=== PATIENT | male | born 1935 | race Caucasian/White ===

== ENCOUNTER 2016-12-07 09:02 | Inpatient (IN) | payer OTHER, MEDICARE ==
[~2016-12-07] VITALS: Ht 170.2 cm; Wt 78.5 kg
--- NOTE | ~2016-12-07 | 2DMMODE ---
[facility] [place] [address] 2 D/M-MODE ECHOCARDIOGRAM Name: OCTAVIO ESPINOSA Room #: 438-P [facility] IN ..#: [id number] Admission: 12/07/16 Attend Phys: Maximus Ibanez Discharge: Date of : 37 Date of Service: 12/08/16 1126 Report #: [id number] THIS REPORT FOR: //name// APPROVED REPORT EXAM: Comprehensive 2D, Doppler, and color-flow Echocardiogram Patient Location: Bedside Blood Pressure: 138/72 mmHg HR: 100 bpm Other Information Study Quality: Poor Indications Dyspnea Pulmonary Embolism 2D Dimensions RVDd: 45.61 mm LVEF(%): 55.10 (>50%) IVSd: 9.18 (7-11mm) LVOT Diam: 22.05 (18-24mm) LVDd: 43.04 mm PWd: 8.89 (7-11mm) Ascending Aorta: 35.98 mm LVDs: 30.82 (25-40mm) IVC: 25.00 mm Aortic Root: 39.00 mm Aguero's LVEF: 55.10 % Volumes Left Atrial Volume (Systole) Single Plane 4CH: 54.19 mL Single Plane 2CH: 77.25 mL LA ESV Index: 39.00 mL/m2 Aortic Valve AoV Peak Jorge.: 1.17 m/s AO Peak Gr.: 5.60 mmHg LV Max P.55 mmHg LV Max: 0.79 m/s Mitral Valve MV E Max Jorge.: 0.97 m/s MV Decel. Time: 156.10 ms Pulmonary Valve PV Peak Jorge.: 0.87 m/s PV Peak Gr.: 3.03 mmHg [facility] [address] [place] [address] 2 D/M-MODE ECHOCARDIOGRAM Name: OCTAVIO ESPINOSA Room #: 438-P [facility] IN [facility].#: [id number] Admission: 12/07/16 Attend Phys: Maximus Ibanez Discharge: Date of : 37 Date of Service: 12/08/16 1126 Report #: [id number] Tricuspid Valve TR Peak Jorge.: 3.10 m/s RAP Estimate: 10.00 mmHg TR Peak Gr.: 38.48 mmHg Left Ventricle The left ventricle is normal size. There is normal LV segmental wall motion. There is normal left ventricular wall thickness. Left ventricular systolic function is normal. The left ventricular ejection fraction is within the normal range. LVEF is 55-60%. Distolic function cannot be accurately assessed. Right Ventricle Right ventricle is dilated. Right ventricle is hypokinetic. Atria Left atrium is dilated. Right atrium is dilated. Aortic Valve Aortic valve is calcified. No aortic regurgitation is present. There is no aortic valvular stenosis. Mitral Valve The mitral valve is normal in structure. Mild mitral regurgitation. Tricuspid Valve The tricuspid valve is normal in structure. There is mild tricuspid regurgitation. The right atrial pressure is estimated at 10 mmHg. There is mild-moderate pulmonary hypertension. Pulmonic Valve The pulmonary valve is normal in structure. There is no pulmonic valvular regurgitation. Great Vessels The aortic root is normal in size. IVC is dilated and collapses >50% with inspiration. Pericardium There is no pericardial effusion. <Conclusion> The left ventricle is normal size. LVEF is 55-60%. [facility] [place] [address] 2 D/M-MODE ECHOCARDIOGRAM Name: JOSE MANUELRADHAOCTAVIO Roberts Room #: 438-P [facility] IN M.R.#: [id number] Admission: 12/07/16 Attend Phys: Maximus Ibanez Discharge: Date of : 37 Date of Service: 12/08/16 1126 Report #: [id number] Right ventricle is dilated. Right ventricle is hypokinetic. Left atrium is dilated. Right atrium is dilated. Aortic valve is calcified. No aortic regurgitation is present. There is no aortic valvular stenosis. The mitral valve is normal in structure. Mild mitral regurgitation. There is mild tricuspid regurgitation. The right atrial pressure is estimated at 10 mmHg. There is mild-moderate pulmonary hypertension. <ELECTRONICALLY SIGNED> By: Artur Schuster MD 12/08/16 1126 1126 1126 Artur Schuster MD /INF
--- NOTE | ~2016-12-07 | EKG ---
[address] rumr: [place] [address] ELECTROCARDIOGRAM REPORT Name: OCTAVIO ESPINOSA Room #: 438-P [facility] IN M.R.#: [id number] Admission: 12/07/16 Attend Phys: Maximus Tyler Discharge: 12/10/16 Date of : 37 Report #: [id number] THIS REPORT FOR: //name// [facility] Test Date: 2016-12-07 Test Time: 13:05:59 Pat Name: OCTAVIO ESPINOSA Department: Room: [facility] Gender: M Bisque Ware Dipper: helga : 1935 Requested By: Tanner Geller Order Number: [id number] MD: Giovanni Coto Measurements Intervals [place] Rate: 107 P: 65 SD: 178 QRS: -5 QRSD: 87 T: -2 QT: 390 QTc: 521 Interpretive Statements Sinus tachycardia Multiple ventricular premature complexes Borderline T abnormalities, diffuse leads No previous ECG available for comparison Electronically Signed On 12-12-2016 12:17:04 CDT by Giovanni Coto [email or web address] <ELECTRONICALLY SIGNED> By: Giovanni Coto MD 12/12/16 1217 1305 130 Giovanni Coto MD /VERONICA
--- NOTE | ~2016-12-07 | EKG ---
[address] [address] ELECTROCARDIOGRAM REPORT Name: OCTAVIO ESPINOSA Room #: 438-P [facility] IN M.R.#: [id number] Admission: 12/07/16 Attend Phys: Maximus Tyler Discharge: 12/10/16 Date of : 37 Report #: [id number] THIS REPORT FOR: //name// [facility] Test Date: 2016-12-07 Test Time: 09:11:20 Pat Name: OCTAVIO ESPINOSA Department: Room: 438 P Gender: M Supply Tech: agatha : 1935 Requested By: Param De Order Number: [id number] MD: Giovanni Coto Measurements Intervals [place] Rate: 120 P: 46 DC: 119 QRS: 18 QRSD: 90 T: 40 QT: 322 QTc: 455 Interpretive Statements Sinus tachycardia Multiple ventricular premature complexes Borderline ST depression, lateral leads No previous ECG available for comparison Electronically Signed On 12-12-2016 12:15:58 CDT by Giovanni Coto [email or web address] <ELECTRONICALLY SIGNED> By: Giovanni Coto MD 12/12/16 1215 0 0 Giovanni Coto MD /VERONICA
--- NOTE | ~2016-12-07 | H ---
[facility] [place] [address] HISTORY AND PHYSICAL Name: OCTAVIO ESPINOSA Fadumo Room #: 438-P ADM IN M.R.#: [id number] Admission: 12/07/16 Attend Phys: Param De MD Discharge: Date of : 37 Report #: [id number] THIS REPORT FOR: //name// CC: NO PCP Param Rooney DATE OF SERVICE: 12/07/2016 CHIEF COMPLAINT: Shortness of air. HISTORY OF PRESENT ILLNESS: The patient is an 81-year-old male, who states he was fine this morning, got up to the bathroom and he suddenly fell short of breath. The patient states he had a little bit of cough, but nothing acute this morning. He does have a history of prior PE many years ago. 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 He states he never found out why he got the blood clot last time. He is not taking any chronic blood thinners. He is not aware of having any underlying coagulopathy. He saw ortho and had a venous Doppler of left leg, just last week that was negative. This was for leg swelling and pain. His EKG shows sinus tachycardia, heart rate of 120, no ST segment changes. PAST MEDICAL HISTORY: Significant for: 1. 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 He has had prior pulmonary embolism, prior compression fractures at L4 and also at T2 and T3. He has prior prostate cancer with radiation and carpal tunnel syndrome. 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 He has cataracts. MEDICATIONS: Include Dilantin 100 mg in the morning and 200 at bedtime, Avodart 0.5 mg a day, Claritin 10 mg a day, ____ daily, calcium daily, glucosamine daily, MSM daily, Valium 5 mg p.r.n., aspirin 81 mg a day, Flovent 44 two puffs daily, fish oil daily, krill oil daily, Toviaz 8 mg a day, Zyrtec 10 mg a day, vitamin D daily, Colace p.r.n., multivitamin, p.r.n. ALLERGIES: No known drug allergies. SOCIAL HISTORY: Prior smoker, not currently. Alcohol occasionally. No recreational drugs. REVIEW OF SYSTEMS: CONSTITUTIONAL: He denies any fever or chills. HEENT: No headaches or visual changes that are recent. CHEST: He has chest tightness, shortness of breath and slight cough. No sputum production. CARDIOVASCULAR: No palpations or angina. [address] [address] HISTORY AND PHYSICAL Name: JOSE MANUELRADHAOCTAVIO Roberts Room #: 438-P [facility] IN M.R.#: [id number] Admission: 12/07/16 Attend Phys: Param De MD Discharge: Date of : 36 Report #: [id number] GASTROINTESTINAL: No nausea, vomiting, diarrhea or constipation. GENITOURINARY: No burning or frequency. He does have chronic incontinence. EXTREMITIES: He has chronic right side weakness and chronic edema. SKIN: No new rashes or wounds. NEUROLOGIC: No new weakness. He has chronic weakness on the right side. LABORATORY DATA: ABG; pH 7.4, pCO2 of 39, pO2 of 55. Lactate is 1.1 on room air. Sodium 139, potassium 4.2, chloride 104, bicarbonate 29, BUN 15, creatinine 0.9, glucose 142, AST 26, ALT 16, and alkaline phosphatase 123. Troponin 0.56. BNP 1093 and albumin 3.1. INR is 1.0. WBCs 5.5, hemoglobin 13.8, hematocrit 40.8, platelet count 159, 69 segs, and 70 lymphs. Chest x-ray shows basal atelectasis but improved from his prior study. CT angiogram is positive for bilateral large pulmonary embolus. ASSESSMENT AND PLAN: 1. Bilateral pulmonary embolism, source not identified yet. We will go ahead and get venous Dopplers bilaterally. He has already been started on heparin drip. We will consult Hematology in light of this being a second clot. I think he needs a coagulopathy workup. 2. Seizure disorder. Resume his home meds. 3. Prior brain injury as above. 4. Urinary retention with benign prostatic hypertrophy, cannot start his Avodart ____ we will give him tamsulosin instead. We will monitor his urine output. By: 1113 1331 Param De MD /nt
[2016-12-07 09:02] VITALS: BP 137/98
[~2016-12-07 09:02] MED LIST: ACID CONTROL20 MG; ASPIRIN EC81 M1; AVODART0.5 MG; CALCITRATE200 MG; CHONDROITIN SU250 MG PO; CLARITIN; DIAZEPAM 5 MG5 M1; DILANTIN 100 M100 MG; ECHINACEA PLUS400 MG; ENABLEX15 MG PO; FISHOIL; FLOVENT HFA 4444 MCG; GLUCOSAMINE HC500 MG; MSM1500 MG; NORCO 5-325 TA1 EACH PO; ONE DAILY COMP1 EAC1; OXYBUTYNIN; POTASSIUM20; SAW PALMETTO500 MG; UNICOMPLEX M TA1 TA1 PO
[2016-12-07] MEDS ORDERED: KRILL OIL500 MG PO (09:24)
[2016-12-07] MEDS ORDERED: FISH OIL 1,001000 M2 PO (09:24)
[2016-12-07 09:26] LABS: ABSOLUTE NEUTROPHILS 3.8 thou/uL (1.4-8.2); EOSINOPHILS 1.9 % (0.0-3.0); HEMATOCRIT 40.8 % (42.0-52.0); HEMOGLOBIN 13.8 gm/dL (14.0-18.0); LYMPHOCYTES 17.5 % (24.0-44.0); MCH 32.2 pg (26.0-34.0); MCHC 33.9 g/dL (28.0-37.0); MCV 95.1 fL (80.0-100.0); MONOCYTES 10.4 % (1.0-8.0); PLATELET COUNT 159 thou/uL (150-400); POLYS 69.2 % (36.0-66.0); RBC 4.29 mil/uL (4.50-6.00); RDW 14.7 % (10.5-14.5); WBC 5.5 thou/uL (4.0-11.0)
[2016-12-07] MEDS ORDERED: CETIRIZINE HCL5 MG PO (09:26)
[2016-12-07] MEDS ORDERED: TOVIAZ8 MG PO (09:26)
[2016-12-07] MEDS ORDERED: VITAMIN D3400 UNIT PO (09:26)
[2016-12-07] MEDS ORDERED: DULCOLAX5 MG PO (09:26)
[2016-12-07 09:29] LABS: MANUAL DIFF NO
[2016-12-07 09:36] LABS: CALCIUM 8.8 mg/dL (8.5-10.1); CREATININE 0.9 mg/dL (0.6-1.3); POTASSIUM 4.2 mmol/L (3.5-5.1)
[2016-12-07 09:43] LABS: ABG SAMPLE TYPE ARTERIAL; BE(vivo) 2.2 mmol/L (-2 to +3); HCO3 26.4 mmol/L (22.0-26.0); LACTATE 1.16 mmol/L (0.5-2.0); O2Hb 88.2 % (92.0-98.0); PCO2 39.5 mmHg (35.0-45.0); pH 7.443 (7.360-7.450); sO2 90.1 % (92.0-98.0); tCO2 27.6 mmol/L (24.0-30.0)
[2016-12-07 09:44] LABS: PO2 55.6 mmHg (80.0-100.0); STICK SITE L.RADIAL
[2016-12-07 09:47] LABS: ALBUMIN 3.1 g/dL (3.4-5.0); TOTAL BILIRUBIN 0.3 mg/dL (<0.1-1.0); TOTAL PROTEIN 6.7 g/dL (6.4-8.2); TROPONIN-I 0.56 ng/mL (<0.04-0.07)
[2016-12-07 10:44] LABS: APTT 27.5 Seconds (24.5-32.8); PROTIME 10.7 Seconds (9.3-11.4)
[2016-12-07 10:54] VITALS: BP 120/81
[2016-12-07 12:47] VITALS: BP 143/85
[2016-12-07 15:55] VITALS: BP 105/73
[2016-12-07 19:27] VITALS: BP 163/92
[2016-12-08 04:26] VITALS: BP 138/72
[2016-12-08 07:27] VITALS: BP 138/72
[2016-12-08 09:15] VITALS: BP 148/71
[2016-12-08 11:45] VITALS: BP 125/66
[2016-12-08 16:15] VITALS: BP 108/58
[2016-12-08 19:41] VITALS: BP 135/68
[2016-12-09 04:32] VITALS: BP 131/59
[2016-12-09 06:47] LABS: HEMATOCRIT 34.7 % (42.0-52.0); HEMOGLOBIN 11.8 gm/dL (14.0-18.0); MCH 32.6 pg (26.0-34.0); MCHC 34.1 g/dL (28.0-37.0); MCV 95.5 fL (80.0-100.0); RBC 3.63 mil/uL (4.50-6.00); RDW 14.5 % (10.5-14.5); WBC 5.6 thou/uL (4.0-11.0)
[2016-12-09 06:59] LABS: CALCIUM 8.9 mg/dL (8.5-10.1); CREATININE 0.8 mg/dL (0.6-1.3); POTASSIUM 3.9 mmol/L (3.5-5.1)
[2016-12-09 08:32] VITALS: BP 109/66
[2016-12-09 12:32] VITALS: BP 96/68
[2016-12-09 16:50] VITALS: BP 152/90
[2016-12-09 19:20] VITALS: BP 141/66
[2016-12-10 01:06] LABS: ANTITHROMBIN III 113 % (75-135); DIL. RUSSELL VIPER VENOM 58.6 sec (0.0-44.0); FACTOR VIII-AHF 149 % (57-163)
[2016-12-10 04:11] LABS: BETA-2 GLYCOPROTEIN IGG < 9 (0-20); BETA-2 GLYCOPROTEIN IGM < 9 (0-32)
[2016-12-10 04:18] VITALS: BP 125/54
[2016-12-10 06:16] LABS: HEMATOCRIT 36.4 % (42.0-52.0); HEMOGLOBIN 12.2 gm/dL (14.0-18.0); MCH 32.3 pg (26.0-34.0); MCHC 33.7 g/dL (28.0-37.0); RBC 3.79 mil/uL (4.50-6.00); RDW 14.6 % (10.5-14.5)
[2016-12-10 08:15] VITALS: BP 103/64
[2016-12-10 11:30] VITALS: BP 110/56
[2016-12-10] MEDS ORDERED: DUONEB 2.5-0.5 M3 ML INH (13:26)
[2016-12-10] MEDS ORDERED: CARDIZEM CD 18180 M3 PO (13:26)
[2016-12-10] MEDS ORDERED: ARIXTRA7.5 MG/0.6 SUBQ (13:29)
[2016-12-10] MEDS ORDERED: VALIUM5 MG PO (13:33)
== END 2016-12-10 15:20 | DRG 175 ==
LOC: ER 09:02 → EROBS 10:38 → 4S 10:38
PROVIDERS: Internal Medicine Hematology & Oncology; Internal Medicine Pulmonary Disease; Physician Assistant
DX: I26.99 Other pulmonary embolism without acute cor pulmonale (principal); J96.01 Acute respiratory failure with hypoxia; I82.412 Acute embolism and thrombosis of left femoral vein; I27.2 Other secondary pulmonary hypertension; H26.9 Unspecified cataract; N40.1 Benign prostatic hyperplasia with lower urinary tract symptoms; R33.8 Other retention of urine; G40.909 Epilepsy, unspecified, not intractable, without status epilepticus; Z87.81 Personal history of (healed) traumatic fracture; Z87.891 Personal history of nicotine dependence; Z85.46 Personal history of malignant neoplasm of prostate; Z87.820 Personal history of traumatic brain injury; Z92.3 Personal history of irradiation
CPT/HCPCS: 10100

== ENCOUNTER 2016-12-23 20:05 | Emergency (ER) | payer OTHER, MEDICARE ==
[~2016-12-23] VITALS: Ht 170.2 cm; Wt 83.9 kg
[~2016-12-23 20:05] MED LIST changes: +ARIXTRA7.5 MG/0.6 SUBQ; +CALCITRATE200 MG PO; +CARDIZEM CD 18180 M3 PO; +CETIRIZINE HCL5 MG PO; +CLARITIN10 MG PO; +DILANTIN100 MG PO; +DULCOLAX5 MG PO; +DUONEB 2.5-0.5 M3 ML INH; +FISH OIL 1,001000 M2 PO; +FLOMAX0.4 MG PO; +KRILL OIL500 MG PO; +LOVAZA1000 MG PO; +TOVIAZ8 MG PO; +VALIUM5 MG PO; +VITAMIN D3400 UNIT PO
[2016-12-23 21:30] LABS: INR 2.3; PROTIME 24.2 Seconds (9.3-11.4)
[2016-12-23] MEDS ORDERED: NORCO 10-325 T1 EAC1 PO (21:36)
== END 2016-12-24 01:11 | disposition home or self-care (01) ==
LOC: ER 20:05
PROVIDERS: Emergency Medicine
DX: M25.511 Pain in right shoulder (principal); G40.909 Epilepsy, unspecified, not intractable, without status epilepticus; G81.91 Hemiplegia, unspecified affecting right dominant side; Z86.711 Personal history of pulmonary embolism; Z85.46 Personal history of malignant neoplasm of prostate; Z87.891 Personal history of nicotine dependence

== ENCOUNTER 2016-12-26 20:09 | Inpatient (IN) | payer OTHER, MEDICARE ==
[~2016-12-26] VITALS: Ht 170.2 cm; Wt 90.7 kg
--- NOTE | ~2016-12-26 | HC ---
[facility] [place] [address] CONSULTATION Name: OCTAVIO ESPINOSA Fadumo Room #: 545-P ADM IN M.R.#: [id number] Admission: 12/26/16 Attend Phys: Jeremy Lawrence MD Discharge: Date of : 37 Report #: [id number] THIS REPORT FOR: //name// CC: Alexandre Lawrence REQUESTING PHYSICIAN: Nurse practitioner, Farheen Andre. REASON FOR CONSULTATION: Right shoulder pain. PAST MEDICAL HISTORY: Right upper extremity paralysis secondary to brain surgery in the 1960s at age 33. He has been left-hand dominant ever since. Pulmonary embolism, anemia, right shoulder pain, pneumonia, seizures, cataracts, compression fracture, prostate cancer and carpal tunnel syndrome. PAST SURGICAL HISTORY: In 1968, intracranial surgery, which left him with right upper extremity hemiparesis; arthroscopic surgery on the left knee; vasectomy and carpal tunnel release. ALLERGIES: No known drug allergies. CURRENT MEDICATIONS: Tamsulosin, phenytoin, multivitamin, loratadine, docusate, fish oil, diltiazem, vitamin D, pantoprazole, insulin. There is a reported history of anticoagulation as treatment for pulmonary embolism, although I do not see specific confirmation of this and the patient has some difficulty with those details on history. SOCIAL HISTORY: Former smoker. No drug abuse. He drinks 1-2 drinks per day. FAMILY HISTORY: Cancer and heart disease. REVIEW OF SYSTEMS: Positive for swelling of the right upper extremity and shoulder pain. Denies fever, chills, mental status changes, nausea, vomiting, diarrhea or recent complaints. HISTORY OF PRESENT ILLNESS: The patient is an 81-year-old left-hand dominant male who has right upper extremity paralysis following brain surgery and at age 33. He has noted a, what sounds like several-week history of right shoulder pain. He was recently admitted to this hospital in November 2016 with pulmonary emboli that was recurrent and he is placed on Arixtra per medical record review. He was then transferred to a assisted facility and he noted pain when he was being assisted with moving earlier this week. This has progressed. He does report a history of seeing Dr. Regis Arias in clinic one week ago and receiving a cortisone injection for this chronic shoulder pain. He presented to the emergency room yesterday with exacerbation of shoulder pain as well as significant swelling. He has had an ultrasound done of the right upper [address] [address] CONSULTATION Name: OCTAVIO ESPINOSA Fadumo Room #: 545-P [facility] IN [facility]#: [id number] Admission: 12/26/16 Attend Phys: Jeremy Lawrence MD Discharge: Date of : 36 Report #: [id number] extremity, which was negative for DVT, as he was noted to have swelling from the shoulder all the way down to the fingers. PHYSICAL EXAMINATION: VITAL SIGNS: Temperature 36.9, pulse 82, respirations 16, blood pressure 131/49 and pulse ox 100%. GENERAL: He is an elderly appearing male, who appears his stated age. He is alert and oriented, no acute distress. NEUROLOGIC: Affect is blunted. EXTREMITIES: Right upper extremity: There is excessive swelling from the shoulder down to the fingers. There is a Band-Aid on the posterior aspect of the shoulder from previous corticosteroid injection recently. He has tenderness about the soft tissues and anterior aspect, superior aspect and posterior aspect of the shoulder. The arm, elbow and forearm are nontender. There is poor motor function in the right upper extremity due to the previous neurologic injury. He does have gross motor function intact distally. He has capillary refill present. LABORATORY DATA: White blood cell count 9.4, hematocrit 21 and platelets 164,000. IMAGING: A CT scan is available that shows previous scapular fracture which is healed. There is no humerus fracture. IMPRESSION: This is an 81-year-old gentleman on anticoagulation for pulmonary emboli, who has right shoulders and upper extremity swelling and right shoulder pain. He has previously received a corticosteroid injection approximately a week ago. PLAN: An MRI has been ordered and I agree with this. I will continue to follow until this is available. I anticipate conservative measures for this. There is report of an ultrasound indicating that there may be a fluid collection around the humerus, consistent with hematoma. We will see what the MRI shows and treat accordingly. Thank you for the consultation. <ELECTRONICALLY SIGNED> By: Junior Maier MD 12/27/16 1739 1148 1341 Junior Maier MD /nt
[~2016-12-26 20:09] MED LIST changes: +NORCO 10-325 T1 EAC1 PO
[2016-12-26 20:11] VITALS: BP 150/66
[2016-12-26 20:31] LABS: ABSOLUTE NEUTROPHILS 7.2 thou/uL (1.4-8.2); BASOPHILS 0.2 % (0.0-2.0); EOSINOPHILS 2.2 % (0.0-3.0); HEMATOCRIT 23.1 % (42.0-52.0); HEMOGLOBIN 7.9 gm/dL (14.0-18.0); LYMPHOCYTES 10.1 % (24.0-44.0); MCH 32.6 pg (26.0-34.0); MCV 95.9 fL (80.0-100.0); MONOCYTES 10.3 % (1.0-8.0); PLATELET COUNT 187 thou/uL (150-400); POLYS 77.2 % (36.0-66.0); RBC 2.41 mil/uL (4.50-6.00); RDW 15.2 % (10.5-14.5); WBC 9.3 thou/uL (4.0-11.0)
[2016-12-26 20:33] LABS: MANUAL DIFF NO
[2016-12-26 20:40] LABS: CALCIUM 8.2 mg/dL (8.5-10.1); CREATININE 0.8 mg/dL (0.7-1.3); POTASSIUM 4.3 mmol/L (3.5-5.1)
[2016-12-26 21:52] VITALS: BP 137/62
[2016-12-26 22:15] VITALS: BP 135/57
[2016-12-27 04:40] VITALS: BP 134/52
[2016-12-27 05:51] LABS: HEMATOCRIT 21.4 % (42.0-52.0); HEMOGLOBIN 7.3 gm/dL (14.0-18.0); MCH 32.9 pg (26.0-34.0); MCHC 34.1 g/dL (28.0-37.0); MCV 96.3 fL (80.0-100.0); PLATELET COUNT 164 thou/uL (150-400); RBC 2.22 mil/uL (4.50-6.00); RDW 14.9 % (10.5-14.5); WBC 9.4 thou/uL (4.0-11.0)
[2016-12-27 05:52] LABS: MANUAL DIFF YES
[2016-12-27 06:01] LABS: INR 2.6; PROTIME 26.6 Seconds (9.3-11.4)
[2016-12-27 06:12] LABS: MAGNESIUM 2.1 mg/dL (1.8-2.4)
[2016-12-27 06:16] LABS: CALCIUM 8.3 mg/dL (8.5-10.1); CREATININE 0.7 mg/dL (0.7-1.3); POTASSIUM 4.5 mmol/L (3.5-5.1)
[2016-12-27 06:55] LABS: ABSOLUTE NEUTROPHILS 7.1 thou/uL (1.4-8.2); TOTAL CELL COUNT 100
[2016-12-27 06:56] LABS: ANISOCYTOSIS 2+; POLYCHROMASIA OCCASIONAL
[2016-12-27 08:01] VITALS: BP 131/49
[2016-12-27 17:00] VITALS: BP 124/58
[2016-12-27 20:12] VITALS: BP 109/51
[2016-12-28 06:20] LABS: RBC 2.09 mil/uL (4.50-6.00); WBC 7.9 thou/uL (4.0-11.0)
[2016-12-28 06:22] LABS: MCH 32.9 pg (26.0-34.0); MCHC 34.4 g/dL (28.0-37.0); MCV 95.7 fL (80.0-100.0); RDW 14.9 % (10.5-14.5)
[2016-12-28 06:27] LABS: HEMOGLOBIN 6.9 gm/dL (14.0-18.0)
[2016-12-28 06:40] LABS: CALCIUM 7.8 mg/dL (8.5-10.1); CREATININE 0.7 mg/dL (0.7-1.3); POTASSIUM 4.6 mmol/L (3.5-5.1)
[2016-12-28 07:40] VITALS: BP 116/54
[2016-12-28 08:05] LABS: INR 1.5; PROTIME 15.6 Seconds (9.3-11.4)
[2016-12-28 09:35] VITALS: BP 125/63; BP 126/70
[2016-12-28 16:00] LABS: ABSOLUTE NEUTROPHILS 5.8 thou/uL (1.4-8.2); BASOPHILS 0.8 % (0.0-2.0); EOSINOPHILS 2.7 % (0.0-3.0); HEMATOCRIT 22.2 % (42.0-52.0); HEMOGLOBIN 7.6 gm/dL (14.0-18.0); LYMPHOCYTES 11.2 % (24.0-44.0); MANUAL DIFF NO; MCH 32.5 pg (26.0-34.0); MCHC 34.3 g/dL (28.0-37.0); MCV 94.7 fL (80.0-100.0); MONOCYTES 11.1 % (1.0-8.0); PLATELET COUNT 182 thou/uL (150-400); POLYS 74.2 % (36.0-66.0); RBC 2.35 mil/uL (4.50-6.00); RDW 15.5 % (10.5-14.5); WBC 7.8 thou/uL (4.0-11.0)
[2016-12-28 20:25] VITALS: BP 137/57
[2016-12-29 04:40] VITALS: BP 138/58
[2016-12-29 06:56] LABS: HEMATOCRIT 23.5 % (42.0-52.0); MCH 32.2 pg (26.0-34.0); MCV 94.6 fL (80.0-100.0); RBC 2.48 mil/uL (4.50-6.00); RDW 15.6 % (10.5-14.5); WBC 8.1 thou/uL (4.0-11.0)
[2016-12-29 07:03] LABS: INR 1.1; PROTIME 11.3 Seconds (9.3-11.4)
[2016-12-29 07:14] LABS: CALCIUM 8.3 mg/dL (8.5-10.1); CREATININE 0.6 mg/dL (0.7-1.3); POTASSIUM 4.4 mmol/L (3.5-5.1)
[2016-12-29 07:40] VITALS: BP 137/64
[2016-12-29] MEDS ORDERED: COLACE 100 MG100 MG PO (15:26)
[2016-12-29 17:10] VITALS: BP 123/53
== END 2016-12-29 18:12 | DRG 812 ==
LOC: ER 20:09 → EROBS 21:23 → 5S 21:23
PROVIDERS: Emergency Medicine; Hospitalist; Nurse Practitioner
PROC: 30233N1 Transfusion of Nonautologous Red Blood Cells into Peripheral Vein, Percutaneous Approach (ICD-10-PCS; principal; 2016-12-28)
DX: D62 Acute posthemorrhagic anemia (principal); T45.515A Adverse effect of anticoagulants, initial encounter; G56.00 Carpal tunnel syndrome, unspecified upper limb; T14.8 Other injury of unspecified body region; I27.2 Other secondary pulmonary hypertension; G40.909 Epilepsy, unspecified, not intractable, without status epilepticus; Z98.42 Cataract extraction status, left eye; Z98.41 Cataract extraction status, right eye; Z98.52 Vasectomy status; Z87.01 Personal history of pneumonia (recurrent); Z85.46 Personal history of malignant neoplasm of prostate; Z87.891 Personal history of nicotine dependence; Z87.311 Personal history of (healed) other pathological fracture; Z80.9 Family history of malignant neoplasm, unspecified; Z79.01 Long term (current) use of anticoagulants; Z79.82 Long term (current) use of aspirin; Z79.899 Other long term (current) drug therapy; Z82.49 Family history of ischemic heart disease and other diseases of the circulatory system; Z86.711 Personal history of pulmonary embolism
CPT/HCPCS: 10086

== ENCOUNTER 2016-12-29 17:20 | Inpatient (IN) | payer OTHER, MEDICARE ==
[~2016-12-29] VITALS: Ht 170.2 cm; Wt 79.1 kg
--- NOTE | ~2016-12-29 | PLAN ---
[facility] [place] [place] [address] REHAB UNIT PLAN OF CARE Name: OCTAVIO ESPINOSA Room #: 516-1 ADM IN M.R.#: [id number] Admission: 12/29/16 Attend Phys: Hansel Melissa MD Discharge: Date of : 36 Report #: [id number] THIS REPORT FOR: //name// CC: Hanesl Ivan DATE OF SERVICE: 12/31/2016 SUBJECTIVE AND OBJECTIVE: The patient is seen back today in followup. Continues with significant ecchymosis of that right upper extremity with swelling. Appears to be little less painful overall today. He is alert and pleasant. His transfers have been max assist of 2, bed to wheelchair. Bed mobility is max assist. In occupational therapy, he is dependent for lower body dressing. ASSESSMENT: 1. Right-sided hemiparesis. 2. 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 3. Residual right upper extremity hemorrhage, worsened by anticoagulation with right upper extremity swelling. 4. Seizure disorder. 5. History of large bilateral pulmonary emboli. 6. Meningioma resection in 1968 with subsequent plate placement in the head in 1970. 7. T2-T3 fracture, 01/09/2011. 8. L4 compression deformity. 9. Spondylosis. PLAN: The overall plan of care is based on the preadmission screen, post-admission physician evaluation and information garnered from therapy assessments. 1. Estimated length of stay at this point is probably going to be at least 2-3 weeks at his lower functional level. 2. Medical prognosis is reasonably good. 3. Anticipated interventions includes the interdisciplinary acute inpatient rehabilitation program with PT and OT, rehab nursing assisting regarding medication management, skin care prophylaxis, bowel and bladder issues and nursing education. Case management is involved as well as the it sales consultant physicians and the rest of the interdisciplinary acute rehabilitation team. 4. Anticipated functional outcomes would be for the patient to improve with basic bed mobility and transfers, so that he can return back to the home setting. 5. Discharge destination, again he will be back to the home setting where he lives in a house with his . 6. Expected therapy by discipline includes PT and OT one and one-half hours per [facility] [address] [place] [address] REHAB UNIT PLAN OF CARE Name: OCTAVIO ESPINOSA Fadumo Room #: 516-1 ADM IN .R.#: [id number] Admission: 12/29/16 Attend Phys: Hansel Melissa MD Discharge: Date of : 36 Report #: [id number] day each five days a week throughout the duration of the acute inpatient rehabilitation stay. <ELECTRONICALLY SIGNED> By: Hansel Melissa MD 01/13/17 1518 0913 1214 Hansel Melissa MD /nt
--- NOTE | ~2016-12-29 | H ---
[facility] [place] [address] HISTORY AND PHYSICAL Name: OCTAVIO ESPINOSA Room #: 516-1 ADM IN M.R.#: [id number] Admission: 12/29/16 Attend Phys: Hansel Melissa MD Discharge: Date of : 36 Report #: [id number] THIS REPORT FOR: //name// CC: Hansel Ivan DATE OF SERVICE: 12/29/2016 HISTORY OF PRESENT ILLNESS: The patient is an 81-year-old white male with history of right hemiparesis, upper and lower extremities from a prior meningoma with resection in 1968. He has an AFO that he wears in the right lower extremity and has significant residual weakness of that right upper extremity. His course has been complicated by history of a large bilateral pulmonary emboli for which he has been on anticoagulation. He had significant worsening of right upper extremity pain and swelling with which he was admitted and noted to have a large right upper extremity hemorrhage worsened by the anticoagulation. He was seen by orthopedics and there was no surgical intervention recommended for him. Ultrasound of the right upper extremity was negative for a DVT. He suffered a significant decline in his functional abilities and was now admitted for acute in-hospital inpatient rehabilitation. PAST MEDICAL AND SURGICAL HISTORY: Includes the prior surgery in 1968 for the meningoma. He was noted to have a plate placed in his head in 1970. He has had problems with seizures. He has a history of pulmonary embolism, arthroscopic surgery times 2 in the left knee, T3-T4 fracture with MRI done 01/09/2011, L4 compression deformity, spondylosis, vasectomy in 1974 and prostate cancer with radiation. MEDICATIONS: Please see the full medication listing. ALLERGIES: No known drug allergies. HABITS: Past tobacco smoker, quit greater than a year ago. History of an alcoholic drink 1-2 per day. SOCIAL HISTORY: Lives in a house with his , 2 steps in. He could utilize a small shopping cart that he would push around. He could dress himself, but his helped with the shower. He spent time sleeping in his lift chair secondary to his reflux disease. He indicated; however, he was able to get on and off the commode by himself. REVIEW OF SYSTEMS: Somewhat sleepy, but no noted complaints of chest pain, shortness of breath, abdominal discomfort. He has the chronic reflux symptomatology. He has the right upper extremity discomfort as expected with significant ecchymosis. He has the right-sided hemiparesis. No complaints of any headaches. No other focal extremity pain complaints. [address] [address] HISTORY AND PHYSICAL Name: OCTAVIO ESPINOSA Room #: 516-1 [facility] IN [facility].#: [id number] Admission: 12/29/16 Attend Phys: Hansel Melissa MD Discharge: Date of : 36 Report #: [id number] PHYSICAL EXAMINATION: GENERAL: An 81-year-old obese white male, in no obvious distress. He was seen earlier. He has nasal prong O2 in place. Facies appeared to be symmetric, sleepy but easily arouses, follows basic commands. VITAL SIGNS: Temperature 36.4, pulse 89, respirations 24. HEENT: Appeared to be grossly benign. CHEST: Sounded clear to auscultation. CARDIAC: Regular rate and rhythm. ABDOMEN: Obese, bowel sounds positive, nontender. GENITOURINARY: Deferred. RECTAL: Deferred. NEUROLOGIC: He has functional range of motion of the left upper extremity and left lower extremity, strength is a grade 4-/5. DTRs were trace to 1. In his right upper extremity, he has considerable ecchymosis of the medial arm and forearm with purplish discoloration. He has edema of the entire arm with some pitting component to it. No volitional movement was noted of that right upper extremity. Right lower extremity has the old AFO that he will utilize. It is a double upright AFO. Strength of the right lower extremity is a grade 3+/5, DTRs are trace to 1. He has been max to mod assist with basic bed mobility. He has been trying to work on sit to stand transfers. ASSESSMENT: An 81-year-old white male with the following problem list: 1. Right-sided hemiparesis. 2. 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 3. Residual right upper extremity hemorrhage worsened by anticoagulation with right upper extremity swelling. 4. Seizure disorder. 5. History of large bilateral pulmonary emboli. 6. Meningoma resection in 1968 with subsequent plate placement in the head in 1970. 7. T2-3 fracture 01/09/2011. 8. L4 compression deformity. 9. Spondylosis. 10. Prostate cancer. 11. Past history of tobacco abuse. 12. Exogenous obesity. PLAN: The patient is admitted for acute in-hospital inpatient rehabilitation. From a post-admission physician evaluation perspective, there are no relevant changes since the preadmission screening. Please see the above review of prior and current medical and functional conditions and comorbidities. Please see the patient's prior and current functional status. As far as risk of complications, the patient has multiple medical comorbidities as noted above. Initial plan of care involves the interdisciplinary acute inpatient rehabilitation program with the goal of maximizing the patient's functional independence, so that he can [address] [address] HISTORY AND PHYSICAL Name: OCTAVIO ESPINOSA Room #: 516-1 ADM IN ..#: [id number] Admission: 12/29/16 Attend Phys: Hansel Melissa MD Discharge: Date of : 36 Report #: [id number] hopefully return back to his prior living situation. Measurable functional goals would be for him to be able to transfer and ambulate short distances as he was before and to be able to do his basic ADLs that he was before, so that he can return back to the home setting. Prognosis is reasonably good. Estimated length of stay is probably at least 2-3 weeks pending progress. Potential barriers would include the multiple medical comorbidities and decreased functional status. The patient meets diagnostic criteria for an acute in-hospital inpatient rehabilitation stay. He meets medical necessity criteria. He does have appropriate tolerance for therapies and has appropriate discharge goals back to the home setting. <ELECTRONICALLY SIGNED> By: Hansel Melissa MD 01/13/17 1518 0932 1009 Hansel Melissa MD /nt
--- NOTE | ~2016-12-29 | HC ---
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 He has an AFO that he wears in the right lower extremity and has significant residual weakness of that right upper extremity. His course has been complicated by a history of a large bilateral pulmonary emboli for which he has been on anticoagulation. He had significant worsening of right upper extremity pain and swelling with which he was admitted, and noted to have a right upper extremity hemorrhage worsened by anticoagulation. He was seen by Orthopedics and there was no surgical intervention recommended for him. Ultrasound of the right upper extremity was negative for DVT. He has had a significant decline in his functional abilities, and we are now seeing him in rehabilitation medicine consultation. PAST MEDICAL AND SURGICAL HISTORY: Includes the prior surgery in 1968 for the meningoma. He was noted to have a plate placed in his head in 1970. He has had problems with seizures. He has a history of pulmonary embolism, arthroscopic surgery x 2 in the left knee, T3-T4 fracture with MRI done 01/09/2011, L4 compression deformity, spondylosis, vasectomy in 1974 and prostate cancer with radiation. MEDICATIONS: Please see the full medication listing. ALLERGIES: No known drug allergies. HABITS: Past tobacco smoker, quit greater than a year ago. History of an alcoholic drink 1 or 2 per day. SOCIAL HISTORY: Lives in a house with his , 2 steps in. He could utilize a small shopping cart that he would push around. He could dress himself, but his helped with the shower. He spent time sleeping in his lift chair secondary to his reflux disease. He indicated he was able to get on and off the commode by himself however. REVIEW OF SYSTEMS: No current complaints of chest pain, shortness of breath or abdominal discomfort. He has the chronic reflux symptomatology as noted above. Some right upper extremity discomfort as expected with the significant ecchymosis. He has the right-sided hemiparesis. He did not offer any complaints of any headaches. No other focal extremity pain complaints. [address] [address] CONSULTATION Name: OCTAVIO HERNANDEZ Room #: 516-1 [facility].#: [id number] Admission: 12/29/16 Attend Phys: Hansel Melissa MD Discharge: Date of : 36 Report #: [id number] PHYSICAL EXAMINATION: GENERAL: An 83-year-old obese white male in no obvious distress. VITAL SIGNS: Last recorded temperature 97.8, pulse 93, respirations 16 and blood pressure 137/64. NEUROLOGIC: He is alert, pleasant, a little cantankerous but will follow basic commands. He has some mild depressed right nasolabial fold. EOMs otherwise appeared to be full. He has functional range of motion of that left upper extremity and left lower extremity. Strength is grade 4-/5 to 4/5. DTRs are trace to 1. In his right upper extremity, he has considerable ecchymosis of the medial arm and forearm with a purplish discoloration. He does have significant edema of the entire arm, which has some pitting component to it. No volitional movement was noted of that right upper extremity. Right lower extremity has the old AFO in place. It is double upright AFO. Strength of that right lower extremity is a grade 3+/5. DTRs are 1. Functionally, he has been max assist to mod assist with basic bed mobility. He has reasonable sitting balance at the edge of the bed. He is motivated to try to work on [id number] transfers. ASSESSMENT: An 83-year-old white male with the following problem list: 1. Right-sided hemiparesis. 2. 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 3. Significant right upper extremity hemorrhage worsened by anticoagulation with right upper extremity swelling. 4. Seizure disorder. 5. History of large bilateral pulmonary emboli. 6. Meningoma resection in 1968 with subsequent plate placement in the head in 1970. 7. T2-T3 fracture 01/09/2011. 8. L4 compression deformity. 9. Spondylosis. 10. Prostate cancer. 11. Past history of tobacco abuse. 12. Exogenous obesity. PLAN: The patient is an appropriate candidate for an acute in-hospital inpatient rehabilitation stay. From a preadmission screening perspective: 1. Prior level of function is well delineated above. 2. Expected level of improvement would be for him to improve as far as transfers and mobility issues and ADLs, so that he can return back to the home setting. Would anticipate length of stay of probably at least 10 days to 2 weeks and potentially longer as warranted. 3. Evaluation of the patient's risk for clinical complications. He does have multiple medical comorbidities as noted above. 4. Condition that caused the need for rehabilitation would be the right hemiparesis. 5. Treatments needed would include PT and OT to work on improving his [address] [place] [address] CONSULTATION Name: OCTAVIO HERNANDEZ Room #: 516-1 ADM IN M.R.#: [id number] Admission: 12/29/16 Attend Phys: Hansel Melissa MD Discharge: Date of : 36 Report #: [id number] functional mobility and ADLs. Rehab nursing will assist regarding medication management, skin care prophylaxis, bowel and bladder issues and nursing education. We will have the windows consultant physicians continue to follow along with case management and the interdisciplinary acute inpatient rehabilitation program. He will be receiving 3 hours per day, 5 days a week of therapies. 6. Anticipated discharge destination would be back home with the . 7. Anticipated post-discharge treatments would include home healthcare therapies when ready for discharge. The patient meets diagnostic criteria for an acute in-hospital inpatient rehabilitation stay. He meets medical necessity criteria with the considerable comorbidities as noted above. He does have the tolerance for an acute inpatient rehab level and has appropriate discharge goals back to the home setting. <ELECTRONICALLY SIGNED> By: Hansel Melissa MD 01/13/17 1518 1602 0013 Hansel Melissa MD /nt
--- NOTE | ~2016-12-29 | HC ---
[facility] [place] [address] CONSULTATION Name: OCTAVIO ESPINOSA Room #: 516-1 ADM IN M.R.#: [id number] Admission: 12/29/16 Attend Phys: Hansel Melissa MD Discharge: Date of : 36 Report #: [id number] THIS REPORT FOR: //name// CC: Hansel Ivan DATE OF SERVICE: 01/03/2017 NEUROBEHAVIORAL STATUS EXAM ATTENDING PHYSICIAN: Hansel Melissa MD REGIONAL MANAGER: Param Powell, PhD CLINICAL PRESENTATION: The patient is an 81-year-old male admitted to the rehab unit at [facility] for comprehensive inpatient rehabilitation program to improve functional mobility, activities of daily living and self-care secondary to deficits from right hemiparesis and recent trauma to his right arm. He carries residual deficits from a meningioma excision in 1968. The patient reportedly developed a seizure disorder in 1970. However, he does not appear to have had a recent seizure work up. His assessment on admission to the rehab unit is a right side hemiparesis, residual deficits from an old brain injury, residual right upper extremity hemorrhage worsened by anticoagulation, seizure disorder, history of large bilateral pulmonary emboli, meningioma resection in 1968 with subsequent plate placement in 1970. A T2-T3 fracture on 01/09/2011, L4 compression deformity, spondylosis, prostate cancer, past history of tobacco abuse and exogenous obesity. A complete description of his medical condition and history can be found in his medical record. Neuropsychological consultation was requested prior to assistance in the assessment of cognitive and emotional status and to provide recommendations and services. Prior to this most recent admission, he was living with the assistance of his in their home. The patient has a masters degree in poultry nutrition. He reports having obtain a Bachelor of Arts degree in Chemistry and Economics. The patient was able to return to work following the excision of the meningioma. He reports having 2 children. Both children live within the [place] area. 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 TECHNIQUES UTILIZED: Clinical interview, review of medical records, staff consultation and behavioral observation, Mini-Mental Status Exam 2 standard version, clock drawing and calibrated ideational fluency assessment (letter and category). [facility] [address] [place] [address] CONSULTATION Name: OCTAVIO ESPINOSA Room #: 516-1 [facility] IN ..#: [id number] Admission: 12/29/16 Attend Phys: Hansel Melissa MD Discharge: Date of : 36 Report #: [id number] EXAMINATION FINDINGS: The patient was alert and cooperative with the assessment. He was somewhat vague in his description of events surrounding his hospitalization. The patient does appear confused about recent admission and current symptoms that require treatment. He does not report a history of treatment for mood disorder, however, he reports feeling depressed. The patient indicates difficulty with word finding, sleep, appetite and fatigue. Pain is also elevated. He does not describe difficulty with memory. There is no report of auditory or visual hallucinations. His performance on the MMSE 2 brief version was within normal limits with a raw score of 15 of 16. The standard version of the MMSE 2 was within normal limits with a raw score 27 of 30. Verbal fluency assessment is extremely low. Letter fluency was a raw score of 8 and a T-score of 19. Category fluency was a raw score of 22 and a T-score of 29. Total verbal fluency was a raw score of 30 and a T-score of 19. Severe impairment in verbal fluency often suggest executive dysfunction. The patient will likely require increased assistance for higher level decision making, planning and problem solving. He was unable to accurately place the hands of a clock at the designated time. Deficits in visual - spatial construction were also noted. DIAGNOSTIC IMPRESSION: Neurocognitive disorder, unspecified - extent to be determined, moderate to severe at this time. Adjustment disorder with depressed mood. RECOMMENDATIONS: The patient will require assistance in compensating for cognitive deficits. Decreased insight into the extent of his deficits places him at increased safety risk. Assistance in the management of his medication will be necessary. A followup neuropsych assessment will also be helpful to clarify the severity of cognitive deficits. At this time, the patient will require structure and supervision to maintain safety. Frequent repetition along with assistance in planning and problem solving will help in compensation for specific deficits. Decreased verbal fluency will make it more difficult for him to accurately describe thoughts and needs. Thank you very much for allowing me to provide the consultation on this patient. <ELECTRONICALLY SIGNED> By: Param Powell, PhD 01/10/17 1603 1602 2329 Param Powell, PhD /nt
[~2016-12-29 17:20] MED LIST changes: +COLACE 100 MG100 MG PO
[2016-12-29 18:30] VITALS: BP 134/67
[2016-12-30 04:23] LABS: HEMOGLOBIN 7.9 gm/dL (14.0-18.0); MCH 32.4 pg (26.0-34.0); MCHC 34.3 g/dL (28.0-37.0); MCV 94.4 fL (80.0-100.0); RBC 2.43 mil/uL (4.50-6.00); RDW 15.4 % (10.5-14.5)
[2016-12-30 04:35] LABS: CALCIUM 8.5 mg/dL (8.5-10.1); CREATININE 0.5 mg/dL (0.7-1.3); POTASSIUM 4.4 mmol/L (3.5-5.1)
[2016-12-30 05:45] VITALS: BP 132/72
[2016-12-30 07:10] VITALS: BP 163/57
[2016-12-30 15:15] VITALS: BP 132/69
[2016-12-31 05:45] VITALS: BP 138/69
[2016-12-31 15:43] VITALS: BP 136/69
[2017-01-01 05:59] VITALS: BP 154/66
[2017-01-01 16:00] VITALS: BP 128/51
[2017-01-02 02:50] VITALS: BP 127/58
[2017-01-02 08:00] VITALS: BP 118/53
[2017-01-02 15:31] VITALS: BP 143/70
[2017-01-03 00:25] VITALS: BP 141/73
[2017-01-03 03:51] VITALS: BP 157/86
[2017-01-03 16:15] VITALS: BP 151/68
[2017-01-04 05:51] VITALS: BP 137/50
[2017-01-04 15:50] VITALS: BP 133/55
[2017-01-05 06:32] VITALS: BP 126/62
[2017-01-05 16:00] VITALS: BP 127/64
[2017-01-06 02:50] VITALS: BP 127/66
[2017-01-06 15:35] VITALS: BP 135/56
[2017-01-07 04:25] VITALS: BP 129/77
[2017-01-07 07:38] VITALS: BP 124/54
[2017-01-07] MEDS ORDERED: SENNA PO (11:07)
[2017-01-07] MEDS ORDERED: MELATONIN5 M1 PO (11:07)
[2017-01-07] MEDS ORDERED: BISACODYL SUPP10 MG RECTAL (11:07)
[2017-01-07] MEDS ORDERED: IBUPROFEN 400400 M2 PO (11:07)
[2017-01-07] MEDS ORDERED: FLONASE 0.05%50 MCG NASAL (11:10)
[2017-01-07] MEDS ORDERED: FLOMAX0.4 MG PO (11:10)
[2017-01-07 15:50] VITALS: BP 146/74
[2017-01-08 05:30] VITALS: BP 140/67
[2017-01-08 06:10] LABS: ABSOLUTE NEUTROPHILS 3.6 thou/uL (1.4-8.2); BASOPHILS 1.1 % (0.0-2.0); EOSINOPHILS 5.4 % (0.0-3.0); HEMATOCRIT 28.2 % (42.0-52.0); HEMOGLOBIN 9.4 gm/dL (14.0-18.0); LYMPHOCYTES 15.2 % (24.0-44.0); MCH 32.2 pg (26.0-34.0); MCHC 33.4 g/dL (28.0-37.0); MCV 96.4 fL (80.0-100.0); MONOCYTES 10.2 % (1.0-8.0); PLATELET COUNT 285 thou/uL (150-400); POLYS 68.1 % (36.0-66.0); RBC 2.93 mil/uL (4.50-6.00); WBC 5.3 thou/uL (4.0-11.0)
[2017-01-08 06:16] LABS: MANUAL DIFF NO
[2017-01-08 06:35] LABS: ALBUMIN 2.8 g/dL (3.4-5.0); CALCIUM 8.3 mg/dL (8.5-10.1); CREATININE 0.7 mg/dL (0.7-1.3); TOTAL BILIRUBIN 0.5 mg/dL (<0.1-1.0); TOTAL PROTEIN 6.1 g/dL (6.4-8.2)
[2017-01-08 07:53] VITALS: BP 151/75
[2017-01-08 16:00] VITALS: BP 148/74
[2017-01-09 05:56] VITALS: BP 140/68
[2017-01-09 16:18] VITALS: BP 155/83
[2017-01-10 03:57] VITALS: BP 125/60
[2017-01-10 15:09] VITALS: BP 131/78
[2017-01-11 04:38] VITALS: BP 129/62
[2017-01-11 08:34] VITALS: BP 125/67
[2017-01-11 16:00] VITALS: BP 149/62
[2017-01-12 04:54] VITALS: BP 140/61
[2017-01-12 16:00] VITALS: BP 119/67
[2017-01-13 04:51] VITALS: BP 120/62
[2017-01-13 07:20] VITALS: BP 140/72
[2017-01-13 16:04] VITALS: BP 129/56
[2017-01-14 05:22] VITALS: BP 133/72
[2017-01-14 05:50] LABS: ABSOLUTE NEUTROPHILS 2.8 thou/uL (1.4-8.2); BASOPHILS 1.3 % (0.0-2.0); EOSINOPHILS 5.3 % (0.0-3.0); HEMATOCRIT 31.4 % (42.0-52.0); HEMOGLOBIN 10.4 gm/dL (14.0-18.0); LYMPHOCYTES 23.4 % (24.0-44.0); MCH 31.9 pg (26.0-34.0); MCHC 33.1 g/dL (28.0-37.0); MCV 96.3 fL (80.0-100.0); MONOCYTES 10.5 % (1.0-8.0); PLATELET COUNT 209 thou/uL (150-400); POLYS 59.5 % (36.0-66.0); RBC 3.26 mil/uL (4.50-6.00); RDW 16.8 % (10.5-14.5); WBC 4.6 thou/uL (4.0-11.0)
[2017-01-14 05:55] LABS: MANUAL DIFF NO
[2017-01-14 05:58] LABS: CALCIUM 8.4 mg/dL (8.5-10.1); CREATININE 0.9 mg/dL (0.7-1.3); POTASSIUM 4.2 mmol/L (3.5-5.1)
[2017-01-14 07:36] VITALS: BP 129/63
== END 2017-01-14 14:30 | DRG 57 ==
PROVIDERS: Nurse Practitioner; Physical Medicine & Rehabilitation
DX: G81.91 Hemiplegia, unspecified affecting right dominant side (principal); E46 Unspecified protein-calorie malnutrition; S22.019A Unspecified fracture of first thoracic vertebra, initial encounter for closed fracture; S22.039A Unspecified fracture of third thoracic vertebra, initial encounter for closed fracture; I10 Essential (primary) hypertension; R58 Hemorrhage, not elsewhere classified; M47.9 Spondylosis, unspecified; F43.20 Adjustment disorder, unspecified; E66.09 Other obesity due to excess calories; F01.50 Vascular dementia, unspecified severity, without behavioral disturbance, psychotic disturbance, mood disturbance, and anxiety; F32.9 Major depressive disorder, single episode, unspecified; S40.021A Contusion of right upper arm, initial encounter; X58.XXXA Exposure to other specified factors, initial encounter; Z96.652 Presence of left artificial knee joint; G47.00 Insomnia, unspecified; Z86.711 Personal history of pulmonary embolism; Z98.52 Vasectomy status; Z79.01 Long term (current) use of anticoagulants; Z87.81 Personal history of (healed) traumatic fracture; Z68.27 Body mass index [BMI] 27.0-27.9, adult; Z79.82 Long term (current) use of aspirin; Z79.899 Other long term (current) drug therapy; Y93.89 Activity, other specified; Y92.89 Other specified places as the place of occurrence of the external cause; Y99.8 Other external cause status; Z85.46 Personal history of malignant neoplasm of prostate
CPT/HCPCS: 10112

== ENCOUNTER 2017-06-18 04:46 | Inpatient (IN) | payer OTHER, MEDICARE ==
[~2017-06-18] VITALS: Ht 172.7 cm; Wt 74.8 kg
--- NOTE | ~2017-06-18 | 2DMMODE ---
[facility] [address] [facility] [place] [employer] [address] 2 D/M-MODE ECHOCARDIOGRAM Name: OCTAVIO ESPINOSA Room #: 429-P [facility] IN ..#: [id number] Admission: 06/18/17 Attend Phys: Cali Mcghee, Discharge: Date of : 36 Date of Service: 06/20/17 1409 Report #: [id number] THIS REPORT FOR: //name// APPROVED REPORT Study performed: 06/20/2017 12:31:35 EXAM: Comprehensive 2D, Doppler, and color-flow Echocardiogram Patient Location: Bedside Room #: 429 Status: on-call BSA: 1.88 HR: 94 bpm BP: 127/59 mmHg Rhythm: Atrial Fibrillation Other Information Study Quality: Adequate Indications COPD Atrial Fibrillation Pleural Effusion 2D Dimensions LVEF(%): 37.94 (>50%) IVSd: 8.58 (7-11mm) LVOT Diam: 22.00 (18-24mm) LVDd: 54.17 mm PWd: 10.28 (7-11mm) Ascending Ao: 37.54 (22-36mm) LVDs: 44.14 (25-40mm) Aortic Root: 36.58 mm LV Single Plane 4CH: 44.42 % LV Single Plane 2CH: 39.25 % Aguero's LVEF: 41.83 % Biplane EF: 40.3 % Volumes Left Atrial Volume (Systole) Single Plane 4CH: 74.03 mL Single Plane 2CH: 73.98 mL LA ESV Index: 43.00 mL/m2 Aortic Valve AoV Peak Jorge.: 1.13 m/s AO Peak Gr.: 5.52 mmHg LVOT Max P.46 mmHg LVOT Max V: 0.78 m/s ANTONIO Vmax: 2.62 cm2 [facility] [place] [address] 2 D/M-MODE ECHOCARDIOGRAM Name: JOSE MANUELANNIOCTAVIO Room #: 429-P [facility] IN ..#: [id number] Admission: 06/18/17 Attend Phys: Cali Mcghee, Discharge: Date of : 36 Date of Service: 06/20/17 1409 Report #: [id number] Pulmonary Valve PV Peak Jorge.: 0.91 m/s PV Peak Gr.: 3.32 mmHg Tricuspid Valve TR Peak Jorge.: 3.11 m/s RAP Estimate: 10.00 mmHg TR Peak Gr.: 38.59 mmHg PA Pressure: 49.00 mmHg Left Ventricle The left ventricle is normal size. There is normal left ventricular wall thickness. Left ventricular systolic function is mild to moderately decreased. LVEF is 40%. This study is not technically sufficient to allow evaluation of the LV diastolic function due to atrial fibrillation. Right Ventricle Right ventricle is mildly dilated. Atria Left atrium is moderately dilated. Right atrium is mildly to moderately dilated. Aortic Valve The Aortic valve is sclerotic. No aortic regurgitation is present. There is no aortic valvular stenosis. Mitral Valve There is mitral annular calcification. Mild to moderate mitral regurgitation. No evidence of mitral valve stenosis. Tricuspid Valve The tricuspid valve is normal in structure. Mild to moderate tricuspid regurgitation. Pulmonic Valve The pulmonary valve is normal in structure. There is no pulmonic valvular regurgitation. Great Vessels The aortic root is normal in size. IVC is dilated and collapses <50% with inspiration. Pericardium There is no pericardial effusion. [facility] [address] [place] [address] 2 D/M-MODE ECHOCARDIOGRAM Name: OCTAVIO ESPINOSA Fadumo Room #: 429-P [facility] IN [facility].#: [id number] Admission: 06/18/17 Attend Phys: Cali Mcghee, Discharge: Date of : 36 Date of Service: 06/20/17 1409 Report #: [id number] <Conclusion> The left ventricle is normal size. Left ventricular systolic function is mild to moderately decreased. LVEF is 40%. Left atrium is moderately dilated. Right atrium is mildly to moderately dilated. The Aortic valve is sclerotic. Mild to moderate mitral regurgitation. Mild to moderate tricuspid regurgitation. <ELECTRONICALLY SIGNED> By: Robby Klein MD 06/20/179 08 1409 Robby Klein MD /DAVINA
--- NOTE | ~2017-06-18 | HC ---
[facility] [place] [address] [address] CONSULTATION Name: OCTAVIO ESPINOSA Fadumo Room #: 429-P ADM IN M.R.#: [id number] Admission: 06/18/17 Attend Phys: Cali Mcghee MD Discharge: Date of : 36 Report #: [id number] THIS REPORT FOR: //name// CC: Marian Mcghee DATE OF SERVICE: 06/18/2017 REASON FOR CONSULTATION: Pleural effusion. IMPRESSION: 1. Pleural effusion on right, question etiology. 2. Peripheral edema. 3. History of pulmonary emboli. 4. History of deep venous thrombosis. PLAN: As Pradaxa has already been held this morning, we will try to do a thoracentesis today. We will obtain films from [facility] otherwise, we will do venous Dopplers of lower extremities, may check an echo. HISTORY OF PRESENT ILLNESS: An 81-year-old male with history of right hemiparesis, with history of meningioma resection, history of bilateral pulmonary emboli on Pradaxa, comes in after fall and debilitation, was in [facility], I believe discharged home yesterday, was admitted there for abdominal pain. Complains of some shortness of breath. No definite chest pain, palpitations, fever, chills or sweats. SOCIAL HISTORY: Positive tobacco in past. Occasional ETOH. ALLERGIES: No known. HOME MEDICATIONS: Included melatonin, DuoNeb, diltiazem, Flonase. PAST MEDICAL AND SURGICAL HISTORY: Includes meningioma 1966 with right upper extremity and lower extremity hemiparesis 1970 . Arthroscopy of left knee. Vasectomy in 1974, prostate cancer, carpal tunnel surgery and right shoulder surgery. REVIEW OF SYSTEMS: Positive shortness of breath. No definite chest pain. Positive weakness. Positive knee ankle pain, history of seizure disorder, cataracts, pulmonary emboli, spondylosis, right lower extremity hemorrhage, right shoulder bursitis. PHYSICAL EXAMINATION: VITAL SIGNS: Temperature 98, pulse 82, respirations 18, BP 130/61. [facility] [address] [place] [address] CONSULTATION Name: OCTAVIO ESPINOSA Room #: 429-P [facility] IN M.R.#: [id number] Admission: 06/18/17 Attend Phys: Cali Mcghee MD Discharge: Date of : 36 Report #: [id number] EYES: Negative icterus. NECK: Negative JVD. LUNGS: Showed decreased breath sounds on right. HEART: Regular. ABDOMEN: Bowel sounds present. EXTREMITIES: Showed positive edema, right weakness. LABORATORY DATA: Chest x-ray showed right infiltrate effusion and atelectasis, possible mass, right knee showed no fracture. White count 8.0, hemoglobin 10.8, platelets 204. BUN 17, creatinine 0.9, pH 7.45, pCO2 39, pO2 [address] chest did not show mass, showed right effusion and atelectasis. By: 1534 1853 Shaun Christianson MD /nt
--- NOTE | ~2017-06-18 | EKG ---
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
--- NOTE | ~2017-06-18 | CNG ---
[facility] [place] [address] CYTO-NONGYN REPORT PROCEDURE Name: OCTAVIO HERNANDEZ Room #: 429-P ADM IN M.R.#: [id number] Admission: 06/18/17 Date of : 36 Discharge: Report #: [id number] Path Case #: [id number] CYTOPATHOLOGY REPORT COLLECTION DATE: 06/18/2017 RECEIVED DATE: 06/19/2017 SUBMITTING PHYS: Dr. Shaun Christianson OTHER PHYS: Dr Marian Mcghee CLINICAL HISTORY: Weakness, fall, Right knee pain, Lung mass. SPECIMEN(S) RECEIVED: A.Pleural fluid * * * * * * * * * * * * FINAL DIAGNOSIS: A. Pleural fluid: - No malignant cells identified. - Numerous reactive mesothelial cells along with acute and chronic inflammatory cells in a background of debris. PATHOLOGIST: Stephany Villalpando M.D. REPORT ELECTRONICALLY SIGNED BY: Stephany Villalpando M.D. DATE/TIME: 06/22/2017 15:12 * * * * * * * * * * * * GROSS PATHOLOGY: A. Pleural fluid: The specimen is submitted unfixed, labeled "Octavio Hernandez". Received by the Cytology Department is 15 mL of red fluid. One ThinPrep slide and a formalin fixed cell block were prepared. (clt 06.19.2017) PLAYGROUND SUPERVISOR(S): JADE Webb(ASCP) INITIAL CPT CODE(S): A; 72152, 73646 Professional services performed by [facility] at [facility] [address] , [place] [address] Technical services performed by [facility] at [address] [place] [address]., [address], [place] [address]. [facility] [address] [place] [address], [address] [facility] [address] [place] [address] CYTO-NONGYN REPORT PROCEDURE Name: OCTAVIO HERNANDEZ Room #: 429-P ADM IN [facility].#: [id number] Admission: 06/18/17 Date of : 36 Discharge: Report #: [id number] Path Case #: [id number] [place] [address] PHONE: [phone] DIRECTOR: Last Stewart M.D. * * * END OF REPORT * * *
--- NOTE | ~2017-06-18 | EKG ---
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 : 1935 Requested By: Galo Conway Order Number: [id number] MD: Corey Olivera Measurements Intervals [place] Rate: 89 P: MA: QRS: -50 QRSD: 125 T: 88 QT: 346 QTc: 421 Interpretive Statements Atrial fibrillation Left bundle branch block Baseline wander in lead(s) V2 Compared to ECG 12/15/2016 12:43:02 Left bundle-branch block now present Sinus tachycardia no longer present Electronically Signed On 06-18-2017 7:53:08 CDT by Corey Olivera [email or web address] <ELECTRONICALLY SIGNED> By: Corey Olivera MD, [facility] 06/18/17 0753 7 Corey Olivera MD, [facility] /EPI
[~2017-06-18 04:46] MED LIST changes: +BISACODYL SUPP10 MG RECTAL; +FLONASE 0.05%50 MCG NASAL; +IBUPROFEN 400400 M2 PO; +MELATONIN5 M1 PO; +SENNA PO
[2017-06-18 05:04] VITALS: BP 122/69
[2017-06-18] MEDS ORDERED: VENTOLIN HFA 1818 GM INH (05:30)
[2017-06-18] MEDS ORDERED: CALCIUM 600 +1 EAC1 PO (05:31)
[2017-06-18] MEDS ORDERED: PRADAXA150 MG PO (05:32)
[2017-06-18] MEDS ORDERED: DIGOXIN250 MCG PO (05:33)
[2017-06-18] MEDS ORDERED: CARDIZEM CD120 MG PO (05:34)
[2017-06-18] MEDS ORDERED: PEPCID20 MG PO (05:35)
[2017-06-18] MEDS ORDERED: LASIX 40 MG TAB40 M2 PO (05:36)
[2017-06-18] MEDS ORDERED: GLUCOSAMINE HC500 MG PO (05:39)
[2017-06-18] MEDS ORDERED: LISINOPRIL5 MG PO (05:40)
[2017-06-18] MEDS ORDERED: MELATONIN1 MG PO (05:42)
[2017-06-18] MEDS ORDERED: HYDROCODONE-AP1 EAC6 PO (05:43)
[2017-06-18] MEDS ORDERED: MUCINEX600 MG PO (05:44)
[2017-06-18] MEDS ORDERED: LOPRESSOR25 PO (05:47)
[2017-06-18] MEDS ORDERED: MIRALAX17 GM PO (05:48)
[2017-06-18 06:37] LABS: HEMATOCRIT 32.5 % (42.0-52.0); HEMOGLOBIN 10.8 gm/dL (14.0-18.0); MCH 31.2 pg (26.0-34.0); MCHC 33.2 g/dL (28.0-37.0); MCV 93.9 fL (80.0-100.0); RBC 3.46 mil/uL (4.50-6.00); RDW 14.5 % (10.5-14.5)
[2017-06-18 06:59] LABS: CALCIUM 9.1 mg/dL (8.5-10.1); POTASSIUM 4.2 mmol/L (3.5-5.1)
[2017-06-18 07:04] LABS: CREATININE 0.9 mg/dL (0.7-1.3)
[2017-06-18 07:51] LABS: ABG SAMPLE TYPE ARTERIAL; BE(vivo) 2.6 mmol/L (-2 to +3); HCO3 26.6 mmol/L (22.0-26.0); LACTATE 1.03 mmol/L (0.5-2.0); O2Hb 85.2 % (92.0-98.0); PO2 47.6 mmHg (80.0-100.0); STICK SITE R.RADIAL; pH 7.452 (7.360-7.450); sO2 85.5 % (92.0-98.0); tCO2 27.8 mmol/L (24.0-30.0)
[2017-06-18 08:18] LABS: URINE BILIRUBIN NEGATIVE (Negative); URINE BLOOD 1+ (Negative); URINE COLOR YELLOW; URINE GLUCOSE-RANDOM* NEGATIVE (Negative); URINE KETONES NEGATIVE (Negative); URINE NITRITE NEGATIVE (Negative); URINE PROTEIN (DIPSTICK) 2+ (Negative); URINE UROBILINOGEN 0.2 E.U./dl (0.2-1.0)
[2017-06-18 08:30] VITALS: BP 133/55
[2017-06-18 08:48] LABS: CRYSTALS None Seen /LPF (None Seen); HYALINE CASTS 4-10 Moderate /LPF (None Seen); SQUAMOUS 0-3 Few /LPF (0-3); URINE WBC 0-5 Rare /HPF (0-5)
[2017-06-18 09:05] VITALS: BP 130/61
[2017-06-18 13:53] LABS: APTT 37.3 Seconds (24.5-32.8); PROTIME 10.7 Seconds (9.3-11.4)
[2017-06-18 14:36] LABS: MAGNESIUM 2.2 mg/dL (1.8-2.4); TROPONIN-I < 0.04 ng/mL (<0.04-0.07)
[2017-06-18 15:33] VITALS: BP 119/58
[2017-06-18 16:58] LABS: BF NUCLEATED CELLS 4272; BF RBC 47268
[2017-06-18 16:59] LABS: CLARITY CLOUDY; COLOR RED; TOTAL VOLUME 50 mL
[2017-06-18 18:01] LABS: MANUAL DIFF YES
[2017-06-18 18:02] LABS: BF MACROPHAGE 6; BF NEUTROPHILS 62
[2017-06-18 20:18] VITALS: BP 107/60
[2017-06-19 03:59] VITALS: BP 115/49
[2017-06-19 07:55] VITALS: BP 98/41
[2017-06-19 11:01] LABS: URIC ACID* 4.9 mg/dL (2.6-7.2)
[2017-06-19 11:11] LABS: BODY FLUID ALBUMIN 1.7 g/dL (()); BODY FLUID AMYLASE 40 U/L (()); BODY FLUID GLUCOSE 117 mg/dL (()); BODY FLUID LDH 582 IU/L (()); BODY FLUID PROTEIN 3.1 g/dL (())
[2017-06-19 15:53] VITALS: BP 115/64
[2017-06-19 19:49] VITALS: BP 106/51
[2017-06-20 03:25] VITALS: BP 118/57
[2017-06-20 07:28] VITALS: BP 127/59
[2017-06-20 16:28] VITALS: BP 109/73
[2017-06-20 20:08] VITALS: BP 98/63
[2017-06-21 03:59] VITALS: BP 103/51
[2017-06-21 08:25] VITALS: BP 114/53
[2017-06-21 15:19] LABS: HEMATOCRIT 30.2 % (42.0-52.0); HEMOGLOBIN 10.1 gm/dL (14.0-18.0); MCH 31.5 pg (26.0-34.0); MCHC 33.5 g/dL (28.0-37.0); MCV 93.8 fL (80.0-100.0); RBC 3.22 mil/uL (4.50-6.00); RDW 14.5 % (10.5-14.5); WBC 6.2 thou/uL (4.0-11.0)
[2017-06-21 15:28] LABS: CALCIUM 9.4 mg/dL (8.5-10.1); CREATININE 0.9 mg/dL (0.7-1.3); MAGNESIUM 1.8 mg/dL (1.8-2.4); POTASSIUM 4.9 mmol/L (3.5-5.1)
[2017-06-21 16:40] VITALS: BP 115/53
[2017-06-21 19:47] VITALS: BP 140/70
[2017-06-22 03:30] VITALS: BP 135/89
[2017-06-22 08:00] VITALS: BP 150/78
[2017-06-22 12:28] LABS: URINE BILIRUBIN NEGATIVE (Negative); URINE BLOOD 3+ (Negative); URINE COLOR YELLOW; URINE GLUCOSE-RANDOM* NEGATIVE (Negative); URINE KETONES NEGATIVE (Negative); URINE NITRITE NEGATIVE (Negative); URINE PROTEIN (DIPSTICK) 2+ (Negative); URINE UROBILINOGEN 0.2 E.U./dl (0.2-1.0)
[2017-06-22 12:35] LABS: CASTS None Seen /LPF (None Seen); SQUAMOUS 0-3 Few /LPF (0-3); URINE RBC 3-10 Few /HPF (0-2)
[2017-06-22 12:36] LABS: BACTERIA 1-9 Few /HPF (None Seen); CRYSTALS None Seen /LPF (None Seen); URINE WBC 0-5 Rare /HPF (0-5)
[2017-06-22 15:29] VITALS: BP 148/73
[2017-06-22 19:17] VITALS: BP 126/63
[2017-06-23 04:00] VITALS: BP 121/79
[2017-06-23 08:00] VITALS: BP 127/63
[2017-06-23] MEDS ORDERED: LEVAQUIN 750 M750 MG PO (14:26)
== END 2017-06-23 19:20 | DRG 186 ==
LOC: ER 04:46 → EROBS 07:42 → 4E 07:42
PROVIDERS: Emergency Medicine; Internal Medicine; Internal Medicine Pulmonary Disease
PROC: 0W993ZZ Drainage of Right Pleural Cavity, Percutaneous Approach (ICD-10-PCS; principal; 2017-06-18)
DX: J90 Pleural effusion, not elsewhere classified (principal); J96.00 Acute respiratory failure, unspecified whether with hypoxia or hypercapnia; I50.23 Acute on chronic systolic (congestive) heart failure; G81.91 Hemiplegia, unspecified affecting right dominant side; I48.1 Persistent atrial fibrillation; J98.11 Atelectasis; J44.9 Chronic obstructive pulmonary disease, unspecified; G40.909 Epilepsy, unspecified, not intractable, without status epilepticus; G47.00 Insomnia, unspecified; M25.571 Pain in right ankle and joints of right foot; R62.7 Adult failure to thrive; Z96.651 Presence of right artificial knee joint; Z86.711 Personal history of pulmonary embolism; Z98.42 Cataract extraction status, left eye; Z98.41 Cataract extraction status, right eye; Z98.52 Vasectomy status; Z85.46 Personal history of malignant neoplasm of prostate; Z87.891 Personal history of nicotine dependence; Z86.718 Personal history of other venous thrombosis and embolism
CPT/HCPCS: 10183